=== PATIENT | female | born 1995 | race Hispanic/Latino ===

== ENCOUNTER → 2019-02-21 14:34 | Outpatient (CLI) | payer MEDICAID, SELFPAY ==
[2019-02-21 13:29] VITALS: BMI 30.5
--- NOTE | 2019-02-21 14:39 | US_ITS ---
STUDY: FIRST TRIMESTER OBSTETRICAL ULTRASOUND REASON FOR EXAM: Female, 23 years old. dating and viability LMP: 12/04/2018 TECHNIQUE: Transvaginal TECHNICAL QUALITY: Adequate. PRIOR ULTRASOUND: None. FINDINGS: There is visualization of a single gestational sac in a normal intrauterine position. The gestational sac shape is within normal limits. There is a visualized yolk sac. The yolk sac measures . The placenta is non-visualized. There is visualization of a live embryo. The crown-rump length (CRL) measures 3.16, indicating an estimated gestational age (EGA) of 10 weeks, 1 days. There is demonstrated cardiac activity with a heart rate of 124 bpm. The estimated gestation age (EGA) by LMP is 11 weeks, 2 days. The estimated date of delivery (ELISABETH) by LMP is 09/10/2019. The estimated gestation age (EGA) by US is 10 weeks, 2 days. The estimated date of delivery (ELISABETH) by US is 09/19/2019. The uterus measures 12.5 x 8.6 x 6.9 cm. There is no demonstrated uterine fibroid. The cervix is closed. The ovaries are not visualized. There is no fluid in the cul de sac. US/Init OB < 14Wks US IMPRESSION: Single live intrauterine 10 weeks 2 days by ultrasound. Estimated delivery date 09/17/2019. It should be noted that the cardiac activity 124 bpm is lower than expected for gestational age . Recommend close interval follow-up study within 7-14 days or as clinically appropriate as well as consideration for early anatomic survey at 12-14 weeks Electronically Signed: Charlotte Jones MD at 23:28 EDT Tel , Service support ,
[2019-02-21 15:42] LABS: Absolute Lymphocyte Count 2.14 X10^3/ul (0.83-4.51); Absolute Neutrophil Count 5.7 X10^3/uL (2.0-7.7); Basophil# 0.02 X10^3/uL; Basophil% 0.2 % (0-1); Eosinophil# 0.12 X10^3/uL; Eosinophils% 1.4 % (0-5); Hematocrit 33.4 % (37-47); Hemoglobin 10.5 g/dl (12.0-15.0); Lymphocyte # 2.14 X10^3/ul (4.0); Lymphocyte % 25.1 % (19-41); Mean Corp Hgb Conc 31.4 g/gl (32-36); Mean Corpuscular Hgb 22.9 pg (27.0-32.0); Mean Corpuscular Volume 72.9 fL (81-99); Mean Platelet Vol. 10.1 fl (6.2-12.0); Monocyte# 0.48 X10^3/uL; Monocyte% 5.6 % (0-10); Neutrophil # 5.74 X10^3/uL (2.7-7.7); Neutrophil % 67.6 % (47-70); Platelet Count 331 K/mm3 (150-450); RBC Distribution Width CV 18.5 % (11.6-14.6); RBC Distribution Width SD 48.9 fl (35.1-43.9); Red Blood Count 4.58 M/mm3 (4.2-5.4); White Blood Count 8.5 K/mm3 (4.4-11.0)
[2019-02-21 15:52] LABS: POSITIVE COUNT NO; POSITIVE DIFFERENTIAL NO; POSITIVE MORPHOLOGY NO
[2019-02-21 17:22] LABS: HIV - WCH Non-Reactive (Nonreactive); Rubella IgG 14.6 IU/mL
[2019-02-23 16:50] LABS: HEPATITIS B SURFACE AG Negative (Negative)
[2019-02-24 01:45] LABS: Rapid Plasmin Reagin (RPR) NONREACTIVE (NONREACTIVE)
[2019-02-27 14:07] LABS: von Willebrand Factor Activity 78 % (50-200)
[2019-02-28 11:53] LABS: Factor VIII Activity 118 % (56-140); VWD Studies Interp Report Note (.); von Willebrand Factor (vWF) Ag 103 % (50-200)
== END ==
LOC: OPUS 14:40 → PAVLAB 15:04 → LAB.FUTURE 02-22 06:42
PROVIDERS: Referring Provider Obstetrics & Gynecology; Visit Provider Obstetrics & Gynecology
DX: Z31.430 Encounter of female for testing for genetic disease carrier status for procreative management (principal); O09.30 Supervision of pregnancy with insufficient antenatal care, unspecified trimester; Z3A.00 Weeks of gestation of pregnancy not specified; Z83.2 Family history of diseases of the blood and blood-forming organs and certain disorders involving the immune mechanism
CPT/HCPCS: 36415; 76801; 85025; 85240; 85245; 85246; 86592; 86703; 86762; 86850; 86900; 87340

== ENCOUNTER → 2019-02-21 17:15 | Outpatient (CLI) | payer MEDICAID, SELFPAY ==
[2019-02-21 13:29] VITALS: BMI 30.5
[2019-02-21 20:18] LABS: Chlamydia Trachomatis by PCR POSITIVE (Negative); Neisserai gonorrhoeae by PCR Negative (Negative); Probe Check PASS; Sample Adequacy Control PASS; Specimen Processing Control PASS
[2019-02-27 11:50] LABS: HPV Reflexed? NOT INDICATED
== END ==
PROVIDERS: Referring Provider Obstetrics & Gynecology; Visit Provider Obstetrics & Gynecology
DX: Z31.430 Encounter of female for testing for genetic disease carrier status for procreative management (principal); O09.30 Supervision of pregnancy with insufficient antenatal care, unspecified trimester; Z3A.00 Weeks of gestation of pregnancy not specified; Z12.4 Encounter for screening for malignant neoplasm of cervix; Z83.2 Family history of diseases of the blood and blood-forming organs and certain disorders involving the immune mechanism
CPT/HCPCS: 36415; 76801; 85025; 85240; 85245; 85246; 86592; 86703; 86762; 86850; 86900; 87340; 87491; 87591; 87624; 88175; G0145

== ENCOUNTER → 2019-03-06 11:38 | Outpatient (CLI) | payer MEDICAID, SELFPAY ==
[2019-03-06 11:19] VITALS: BMI 30.5
[2019-03-06 13:30] LABS: Absolute Lymphocyte Count 1.66 X10^3/ul (0.83-4.51); Absolute Neutrophil Count 5.3 X10^3/uL (2.0-7.7); Basophil# 0.02 X10^3/uL; Basophil% 0.3 % (0-1); Eosinophil# 0.07 X10^3/uL; Eosinophils% 0.9 % (0-5); Hematocrit 31.9 % (37-47); Lymphocyte # 1.66 X10^3/ul (4.0); Lymphocyte % 21.9 % (19-41); Mean Corp Hgb Conc 31.3 g/gl (32-36); Mean Corpuscular Volume 73.5 fL (81-99); Mean Platelet Vol. 10.3 fl (6.2-12.0); Monocyte# 0.55 X10^3/uL; Monocyte% 7.3 % (0-10); Neutrophil # 5.27 X10^3/uL (2.7-7.7); Neutrophil % 69.5 % (47-70); Platelet Count 294 K/mm3 (150-450); RBC Distribution Width CV 18.6 % (11.6-14.6); RBC Distribution Width SD 48.7 fl (35.1-43.9); Red Blood Count 4.34 M/mm3 (4.2-5.4); White Blood Count 7.6 K/mm3 (4.4-11.0)
[2019-03-06 13:32] LABS: POSITIVE COUNT NO; POSITIVE DIFFERENTIAL NO; POSITIVE MORPHOLOGY NO
[2019-03-06 13:51] LABS: Glucose Challenge Gest 1H 50g 69 mg/dL (70-140)
== END ==
PROVIDERS: Referring Provider Obstetrics & Gynecology; Visit Provider Obstetrics & Gynecology
DX: O99.019 Anemia complicating pregnancy, unspecified trimester (principal); O99.211 Obesity complicating pregnancy, first trimester; Z3A.00 Weeks of gestation of pregnancy not specified
CPT/HCPCS: 36415; 82950; 85025

== ENCOUNTER 2019-03-14 17:17 | Emergency (ER) | payer MEDICAID, SELFPAY ==
[2019-03-06 11:19] VITALS: BMI 30.5
[2019-03-14 17:17] VITALS: BP 120/68; PULSE 92; RESP 18; TEMP 36.7; O2SAT 100; BMI 29.9
--- NOTE | 2019-03-14 18:04 | RAD_ITS ---
STUDY: X-RAY - LEFT CALCANEUS REASON FOR EXAM: Female, 23 years old. Pain TECHNIQUE: 2 view(s) of the calcaneus were obtained. COMPARISON: None. FINDINGS: There is no evidence of fracture or dislocation. There is a small plantar calcaneal spur. There are no radiodense foreign bodies. RAD/Calcaneus min 2 Views IMPRESSION: No fracture or dislocation. Small plantar calcaneal spur. Electronically Signed: Shane Michelle, at 19:00 EDT Tel , Service support ,
[2019-03-14] MEDS: Acetaminophen 500 MG Tablet 1000 MG PO (18:13)
--- NOTE | 2019-03-14 18:25 | RAD_ITS ---
STUDY: X-RAY - RIGHT CALCANEUS REASON FOR EXAM: Female, 23 years old. Pain TECHNIQUE: 2 view(s) of the calcaneus were obtained. COMPARISON: None. FINDINGS: There is no evidence of fracture or dislocation. There is a small plantar calcaneal spur. There are no radiodense foreign bodies. RAD/Calcaneus min 2 Views IMPRESSION: No fracture or dislocation. Small plantar calcaneal spur. Electronically Signed: Shane Michelle, at 19:00 EDT Tel , Service support ,
--- NOTE | 2019-03-14 19:19 | ED.VIS.GEN ---
History of Present Illness Chief Complaint: Lower Extremity Injury Informant: Patient Onset: Days - 7 Narrative: Patient presents with a week history of bilateral heel pain. Initially started on left side went to the right. She is a G3, P2 13-week gestation followed by Dr. Jonathon Joyce. Reports saw ED in [place] 2 days ago was placed on Motrin. No image studies. Denies any trauma. Denies fever. Reports yesterday noted nodules on her shins bilaterally is tender to palpation. No fevers. No drainage. No previous similar symptoms with other pregnancies. Denies any rheumatological family history. Also states some discomfort in bilateral wrists. Prior similar symptoms: No Past Medical History - Allergies and Home Meds Allergies/Adverse Reactions: Allergies No Known Allergies Allergy (Verified 03/14/19 17:18) Primary Care Physician: Care Physician,No Primary [Primary Care Provider] - Smoking Status: Never smoker Review of Systems General: Denies: Chills, Fever, Sweats Eyes: Denies: Visual changes - bilaterally, Diplopia ENT: Denies: Rhinorrhea, Sore throat Cardiovascular: Denies: Chest pain, Palpitations Respiratory: Denies: Dyspnea, Cough, Dyspnea on exertion Gastrointestinal: Denies: Abdominal pain, Nausea, Vomiting, Diarrhea, Melena, Hematochezia Genitourinary: Denies: Dysuria, Hematuria, Frequency Musculoskeletal: Reports: Arthralgias. Denies: Back pain, Extremity Pain Skin: Denies: Rash, Wounds Neurological: Denies: Headache, Weakness, Numbness Physical Exam Vital Signs/Narrative: Vital Signs Temp Pulse Resp BP Pulse Ox 03/14/19 17:17 98.1 F 92 18 120/68 100 Inital Vital Signs reviewed: Yes General: Well nourished, Well developed, No Acute Distress Head: Normocephalic, Atraumatic Eyes: Perrl, EOMI ENT: Moist mucous membranes, No rhinorrhea Neck: Supple, Nontender Cardiovascular: Regular rate, Regular rhythm, No murmurs Respiratory: No distress, CTA bilaterally, Chest nontender Abdomen: Soft, Nontender, Nondistended, Normal bowel sounds Back: Nontender, Normal Inspection Extremities: No edema, - - Tender palpation bilateral heels, skin intact. No drainage. No streaking. No plantar fascia tenderness. Bilateral shins noted red tender palpation nodules, no drainage or streaking. Skin: No rash, - - See above Neurological: Alert, Oriented x3, Cranial nerves II-XII grossly intact, Normal Strength, Normal Sensation Psychological: Normal affect, Normal Mood Diagnostic/Tx/Re-eval Bilateral heel x-rays: Small heel spurs bilaterally. - Medical Decision Making Patient given Tylenol secondary to . X-rays confirm some heel spurs. Likely pain from being on her feet along with being . There is no plantar tenderness. 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 She may also discuss with her OB with her nodules with . She will stop Motrin and use Tylenol only as needed. ED Disposition - Plan for ED Patient: Disposition: Home or Assisted Living Diagnosis: Heel spur, Arthralgia, Erythema nodosum, First trimester Instructions: Heel Spur, Arthralgia, : Common Questions Referrals: Care Physician,No Primary [Primary Care Provider] - Fast,Nannette, DO [NON-STAFF] - 5-7 Days Additional Instructions: Bilateral heel spurs on x-ray. Use postop shoes. Tylenol as needed. Stop Motrin. Erythema nodosum of the shins can be seen with , however may need further work-up for rheumatological disease as an outpatient.
[2019-03-14 19:49] VITALS: BP 118/65; PULSE 82; RESP 16; O2SAT 98
== END 2019-03-14 19:56 | disposition home or self-care (01) ==
PROVIDERS: Emergency Provider Emergency Medicine
DX: O99.89 Other specified diseases and conditions complicating pregnancy, childbirth and the puerperium (principal); M77.32 Calcaneal spur, left foot; M77.31 Calcaneal spur, right foot; M25.532 Pain in left wrist; M25.531 Pain in right wrist; O99.711 Diseases of the skin and subcutaneous tissue complicating pregnancy, first trimester; L52 Erythema nodosum; Z3A.13 13 weeks gestation of pregnancy
CPT/HCPCS: 73650; 99284; J7030; A4216

== ENCOUNTER 2019-04-02 23:16 | Emergency (ER) | payer MEDICAID, SELFPAY ==
[2019-04-02 23:17] VITALS: BP 126/67; PULSE 89; RESP 16; TEMP 36.5; O2SAT 99; BMI 30.4
--- NOTE | 2019-04-03 00:18 | ED.VIS.GEN ---
History of Present Illness Chief Complaint: Edema Informant: Patient Onset: Month(s) - 1 Context: Gradual Onset Timing: Continuous Quality: sore red lumps Location: both legs Current Severity: Moderate Maximum Severity: Moderate Worsened by: palpation, walking Relieved by: rest Associated Symptoms: swelling in both ankles now x several days Narrative: Patient is around 16 weeks and has had these lumps on her legs for the past month. Initially the pain started in her heels, she was told she had spurs after having some x-rays done. She has not followed up for any of this yet but comes in tonight because her ankles are swollen. She denies any chest discomfort, shortness of breath, near syncopal symptoms or palpitations. Past Medical History - Allergies and Home Meds Allergies/Adverse Reactions: Allergies No Known Allergies Allergy (Verified 04/02/19 23:17) Primary Care Physician: Carmen Patino MD [STAFF PHYSICIAN] - (call for appt tomorrow) Past Medical History: None Lives: Spouse/ Significant Other Smoking Status: Never smoker Review of Systems General: Denies: Chills, Fever, Sweats Eyes: Denies: Visual changes - bilaterally, Diplopia ENT: Denies: Rhinorrhea, Sore throat Cardiovascular: Denies: Chest pain, Palpitations Respiratory: Denies: Dyspnea, Cough, Dyspnea on exertion Gastrointestinal: Denies: Abdominal pain, Nausea, Vomiting, Diarrhea, Melena, Hematochezia Genitourinary: Denies: Dysuria, Hematuria, Frequency Musculoskeletal: Reports: Swelling, Extremity Pain. Denies: Back pain Skin: Reports: Rash. Denies: Wounds Neurological: Denies: Headache, Weakness, Numbness Physical Exam Vital Signs/Narrative: Vital Signs Temp Pulse Resp BP Pulse Ox 04/02/19 23:17 97.7 F L 89 16 126/67 H 99 Inital Vital Signs reviewed: Yes General: Well nourished, Well developed, No Acute Distress Head: Normocephalic, Atraumatic Eyes: Perrl, EOMI Neck: Supple, Nontender Cardiovascular: Regular rate, Regular rhythm, No murmurs Respiratory: No distress, CTA bilaterally, Chest nontender Abdomen: Soft, Nontender, Nondistended, Normal bowel sounds Back: Nontender, Normal Inspection Extremities: Tenderness - At multiple erythematous, raised nodules both shins, including one small one on the left calf., Edema - 1+ to both ankles, symmetric Skin: No Trauma, Rash - Tender erythematous raised nodules on both shins, left calf pain, no lymphangitis Neurological: Alert, Oriented x3, Cranial nerves II-XII grossly intact, Normal Strength, Normal Sensation, Normal Gait Psychological: Normal affect, Normal Mood Diagnostic/Tx/Re-eval - Medical Decision Making 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 I discussed with her OB who was on-call, Dr. Patino, who sees this commonly in females due to hormone changes. She agrees that the patient does not need any further emergent work-up in the emergency department. Patient was concerned about her blood pressure of 124. I reassured her. I did order her an ultrasound of the lower extremities to be obtained next business day as it is not available at the hour she presents, given the nodule on her calf and edema. I am at a low suspicion of a DVT. She will follow-up. ED Disposition - Plan for ED Patient: Disposition: Home or Assisted Living Diagnosis: Erythema nodosum, Instructions: PERIPHERAL EDEMA, Bilateral Referrals: Carmen Patino MD [STAFF PHYSICIAN] - (call for appt tomorrow) Additional Instructions: Radiology will call you in the morning regarding your ultrasound.
[2019-04-03] MEDS: Acetaminophen 500 MG Tablet 1000 MG PO (00:20)
[2019-04-03 00:33] VITALS: RESP 18
== END 2019-04-03 00:37 | disposition home or self-care (01) ==
PROVIDERS: Emergency Provider Emergency Medicine
DX: O26.892 Other specified pregnancy related conditions, second trimester (principal); L52 Erythema nodosum; Z3A.16 16 weeks gestation of pregnancy
CPT/HCPCS: 99283

== ENCOUNTER → 2019-04-03 11:08 | Outpatient (CLI) | payer MEDICAID, SELFPAY ==
[2019-04-02 23:17] VITALS: BMI 30.4
--- NOTE | 2019-04-03 11:10 | VDLE_ITS ---
Reason For Study: Pain/Swelling RIGHT LEFT GSV is normal. GSV is normal. CFV is compressible, spontaneous, phasic, CFV is compressible, spontaneous, phasic, competent and demonstrates normal competent, and demonstrates normal augmentation. augmentation. FV is compressible, spontaneous, phasic, FV is compressible, spontaneous, phasic, competent and demonstrates normal competent and demonstrates normal augmentation. augmentation. POP V is compressible, spontaneous, phasic, POP V is compressible, spontaneous, phasic, competent and demonstrates normal competent and demonstrates normal augmentation. augmentation. T/P Trunk is compressible. T/P Trunk is compressible. PTV is compressible. PTV is compressible. RT PerV is compressible. LT PerV is compressible. Procedure Exam performed in department. A preliminary report was called and/or faxed to [facility]. Pt seen in ED 04/02/19. Interpretation Summary No evidence for acute deep venous thrombosis bilateral lower extremities with patent and compressible bilateral great saphenous veins. Ordering Physician: Hugo Culver Performed By: Emma Ferrara RVT
== END ==
PROVIDERS: Referring Provider Emergency Medicine; Visit Provider Emergency Medicine
DX: M79.605 Pain in left leg (principal); M79.604 Pain in right leg; R60.0 Localized edema
CPT/HCPCS: 93970

== ENCOUNTER → 2019-04-11 17:29 | Outpatient (CLI) | payer MEDICAID, SELFPAY ==
[2019-04-11 12:09] VITALS: BMI 30.4
[2019-04-11 21:03] LABS: Chlamydia Trachomatis by PCR Negative (Negative); Neisserai gonorrhoeae by PCR Negative (Negative); Probe Check PASS; Sample Adequacy Control PASS; Specimen Processing Control PASS
== END ==
PROVIDERS: Referring Provider Obstetrics & Gynecology; Visit Provider Obstetrics & Gynecology
DX: O98.819 Other maternal infectious and parasitic diseases complicating pregnancy, unspecified trimester (principal); A74.9 Chlamydial infection, unspecified
CPT/HCPCS: 87491; 87591

== ENCOUNTER → 2019-05-08 16:49 | Outpatient (CLI) | payer MEDICAID, SELFPAY ==
[2019-05-08 13:27] VITALS: BMI 30.4
[2019-05-08 19:43] LABS: Chlamydia Trachomatis by PCR Negative (Negative); Neisserai gonorrhoeae by PCR Negative (Negative); Probe Check PASS; Sample Adequacy Control PASS; Specimen Processing Control PASS
== END ==
PROVIDERS: Referring Provider Obstetrics & Gynecology; Visit Provider Obstetrics & Gynecology
DX: O98.819 Other maternal infectious and parasitic diseases complicating pregnancy, unspecified trimester (principal); A74.9 Chlamydial infection, unspecified; Z3A.00 Weeks of gestation of pregnancy not specified
CPT/HCPCS: 87491; 87591

== ENCOUNTER → 2019-06-26 15:10 | Outpatient (CLI) | payer MEDICAID, SELFPAY ==
[2019-06-26 15:04] VITALS: BMI 28.8
[2019-06-26 16:11] LABS: Absolute Lymphocyte Count 1.67 X10^3/uL (0.83-4.51); Absolute Neutrophil Count 6.5 X10^3/uL (2.0-7.7); Basophil# 0.03 X10^3/uL; Basophil% 0.3 % (0-1); Eosinophils% 1.1 % (0-5); Hematocrit 27.7 % (37-47); Hemoglobin 8.2 g/dL (12.0-15.0); Lymphocyte # 1.67 X10^3/ul (4.0); Lymphocyte % 18.9 % (19-41); Mean Corp Hgb Conc 29.6 g/dL (32-36); Mean Corpuscular Hgb 22.3 pg (27.0-32.0); Mean Corpuscular Volume 75.5 fL (81-99); Mean Platelet Vol. 10.2 fl (6.2-12.0); Monocyte# 0.53 X10^3/uL; NRBC Flagged by Analyzer 0 % (0-5); Neutrophil # 6.47 X10^3/uL (2.7-7.7); Neutrophil % 73.4 % (47-70); Platelet Count 302 K/mm3 (150-450); RBC Distribution Width CV 15.3 % (11.6-14.6); RBC Distribution Width SD 41.2 fl (35.1-43.9); Red Blood Count 3.67 M/mm3 (4.2-5.4); White Blood Count 8.8 K/mm3 (4.4-11.0)
[2019-06-26 16:13] LABS: Glucose Challenge Gest 1H 50g 113 mg/dL (70-140)
== END ==
PROVIDERS: Referring Provider Obstetrics & Gynecology; Visit Provider Obstetrics & Gynecology
DX: Z34.82 Encounter for supervision of other normal pregnancy, second trimester (principal)
CPT/HCPCS: 36415; 82950; 85025

== ENCOUNTER → 2019-06-27 12:58 | Outpatient (CLI) | payer MEDICAID, SELFPAY ==
[2019-06-26 15:04] VITALS: BMI 28.8
[2019-06-27 13:30] VITALS: BP 114/53; PULSE 68; RESP 16; TEMP 36.9; O2SAT 100; BMI 29.2
== END ==
PROVIDERS: Referring Provider Obstetrics & Gynecology; Visit Provider Obstetrics & Gynecology
DX: O99.019 Anemia complicating pregnancy, unspecified trimester (principal); Z3A.00 Weeks of gestation of pregnancy not specified
CPT/HCPCS: 96365; 96366; J1756; J7050; A4216

== ENCOUNTER → 2019-07-03 12:58 | Outpatient (CLI) | payer MEDICAID, SELFPAY ==
[2019-06-26 15:04] VITALS: BMI 28.8
[2019-06-27 13:30] VITALS: BMI 29.2
[2019-07-03 13:10] VITALS: BP 105/57; PULSE 68; RESP 16; TEMP 36.8; O2SAT 97; BMI 29.2
== END ==
PROVIDERS: Referring Provider Obstetrics & Gynecology; Visit Provider Obstetrics & Gynecology
DX: O99.019 Anemia complicating pregnancy, unspecified trimester (principal); Z3A.00 Weeks of gestation of pregnancy not specified
CPT/HCPCS: 96365; 96366; J1756; J7050; A4216

== ENCOUNTER → 2019-07-10 12:58 | Outpatient (CLI) | payer MEDICAID, SELFPAY ==
[2019-06-26 15:04] VITALS: BMI 28.8
[2019-07-03 13:10] VITALS: BMI 29.2
[2019-07-10 13:36] VITALS: BP 95/60; PULSE 75; RESP 16; TEMP 36.7; O2SAT 100; BMI 29.2
== END ==
PROVIDERS: Referring Provider Obstetrics & Gynecology; Visit Provider Obstetrics & Gynecology
DX: O99.019 Anemia complicating pregnancy, unspecified trimester (principal); Z3A.00 Weeks of gestation of pregnancy not specified
CPT/HCPCS: 96365; 96366; J1756; J7050; A4216

== ENCOUNTER → 2019-08-11 14:12 | Outpatient (CLI) | payer MEDICAID, SELFPAY ==
[2019-08-11 13:53] VITALS: BMI 29.2
[2019-08-11 14:40] LABS: ROM Internal Control Test YES-OK TO RESULT pt. (Internal QC); ROM Patient Test Negative (Negative)
== END ==
PROVIDERS: Visit Provider Nurse Practitioner Women's Health
DX: N89.8 Other specified noninflammatory disorders of vagina (principal)
CPT/HCPCS: 84112

== ENCOUNTER → 2019-08-23 13:57 | Outpatient (CLI) | payer MEDICAID, SELFPAY ==
[2019-08-23 13:44] VITALS: BMI 29.2
[2019-08-23 14:18] LABS: Absolute Lymphocyte Count 1.54 X10^3/uL (0.83-4.51); Absolute Neutrophil Count 6.3 X10^3/uL (2.0-7.7); Basophil# 0.03 X10^3/uL; Basophil% 0.4 % (0-1); Eosinophil# 0.03 X10^3/uL; Eosinophils% 0.4 % (0-5); Hematocrit 35.1 % (37-47); Hemoglobin 11.3 g/dL (12.0-15.0); Lymphocyte # 1.54 X10^3/ul (4.0); Lymphocyte % 18.5 % (19-41); Mean Corp Hgb Conc 32.2 g/dL (32-36); Mean Corpuscular Hgb 26.3 pg (27.0-32.0); Mean Corpuscular Volume 81.6 fL (81-99); Monocyte# 0.44 X10^3/uL; Monocyte% 5.3 % (0-10); NRBC Flagged by Analyzer 0 % (0-5); Neutrophil # 6.27 X10^3/uL (2.7-7.7); POSITIVE MORPHOLOGY YES; Platelet Count 285 K/mm3 (150-450); RBC Distribution Width CV 22.3 % (11.6-14.6); RBC Distribution Width SD 63.7 fl (35.1-43.9); White Blood Count 8.3 K/mm3 (4.4-11.0)
[2019-08-23 14:23] LABS: Differential Indicated SCAN CRITERIA MET
[2019-08-23 14:41] LABS: Anisocytosis 1+
== END ==
PROVIDERS: Referring Provider Nurse Practitioner Women's Health; Visit Provider Nurse Practitioner Women's Health
DX: Z34.90 Encounter for supervision of normal pregnancy, unspecified, unspecified trimester (principal)
CPT/HCPCS: 36415; 85025; 87081; 87086; 87088

== ENCOUNTER 2019-09-18 18:45 | Inpatient (IN) | payer MEDICAID, SELFPAY ==
[2019-09-14 13:43] VITALS: BMI 29.2
[2019-09-18 18:32] VITALS: BMI 31.6
[2019-09-18] MEDS: Lactated Ringers 1,000 ML 50 ML IV (19:40)
[2019-09-18 20:02] LABS: Absolute Lymphocyte Count 2.43 X10^3/uL (0.83-4.51); Basophil# 0.04 X10^3/uL; Basophil% 0.4 % (0-1); Eosinophil# 0.05 X10^3/uL; Eosinophils% 0.5 % (0-5); Hematocrit 36.2 % (37-47); Hemoglobin 11.9 g/dL (12.0-15.0); Lymphocyte # 2.43 X10^3/ul (4.0); Mean Corp Hgb Conc 32.9 g/dL (32-36); Mean Corpuscular Hgb 26.4 pg (27.0-32.0); Mean Corpuscular Volume 80.3 fL (81-99); Mean Platelet Vol. 10.9 fl (6.2-12.0); Monocyte# 0.53 X10^3/uL; Monocyte% 5.2 % (0-10); NRBC Flagged by Analyzer 0 % (0-5); Neutrophil # 7.03 X10^3/uL (2.7-7.7); Neutrophil % 69.6 % (47-70); Platelet Count 276 K/mm3 (150-450); RBC Distribution Width CV 19.6 % (11.6-14.6); Red Blood Count 4.51 M/mm3 (4.2-5.4); White Blood Count 10.1 K/mm3 (4.4-11.0)
[2019-09-18] MEDS: Lactated Ringers 500 ML 999 ML IV ×2 (20:14→21:33)
[2019-09-18] MEDS: fentaNYL-bupivacaine (epidural) 100 ML BAG EPIDURAL (21:00)
--- NOTE | 2019-09-18 21:09 | HP.PCM_ITS ---
- Problem List (1) Anemia affecting Status: Acute Comment: IV Venofer infusions (2) Echogenic bowel of fetus on ultrasound Status: Acute Comment: growth US q4 weeks-adequate growth 08/21/19, echogenic bowel resolved. (3) History of incision and drainage Status: Acute Comment: Left gfukoh-Khmhvwbu-Hekehs-up with Dr. Harris 04/19/19 (4) LGSIL (low grade squamous intraepithelial dysplasia) Status: Acute Comment: repeat pap (5) Anemia affecting Status: Acute Qualifiers: Comment: iron, needs repeat cbc in 4 weeks (6) Chlamydia infection affecting Status: Acute Comment: retest negative (7) Family history of von Willebrand disease Status: Acute Comment: negative screening (8) Status: Acute Qualifiers: Comment: Horizon negative 4 out of 4; NT appeared normal Panorama low risk, anatomy normal (9) Obesity affecting Status: Acute Qualifiers: Comment: 1 tm glucola, discussed healthy weight gain (10) Supervision of normal Status: Acute Qualifiers: Comment: PRR ELISABETH 09/17/19 girl Calvin Rodriguez , (girl) boyfriend Robin ([employer], Sarah) History Date of Admission: 11/18/12 Final ELISABETH: 09/17/19 Gestational age: 40 Weeks and 1 Days History of this : This is a 24 year-old, at 40 weeks gestational age sent in active labor 4 cm dilated with no vaginal bleeding or loss of fluid admits good movement patient has had a complicated by echogenic bowel but had normal genetics and follow-up screening sent. Allergies No Known Allergies Allergy (Verified 09/18/19 20:24) Home Medications: Home Medications vitamin #56-iron 35 mg and 5 mg-folic acid 1 mg-dha capsule 1 cap PO DAILY 02/21/19 Ferrous Sulfate [Ferosul] 325 mg PO DAILY 03/14/19 Smoking Status: Never smoker Alcohol: None Number of Fetus(es): 1 NST - FHR Rate Baby A Baseline: 130 Variability:: Moderate Accelerations:: 15 x 15 Decelerations:: None NST Reactive:: Yes FHR Category:: Category I History Past Pregnancies: Past Pregnancies Pregancy History 3 Elective abortions Hx Para 2 Spontaneous abortions Hx # Term Pregnancies Ectopic pregnancies Hx # Pregnancies Multiple births # of living children Past Pregnancies Del. Date Name GA/Weeks Outcome Route Bth Weight Gen Labor Lgth Anesthesia Del Locatn Provider FOB 10/29/122012 Nicolás 37 live - full term 6 lbs 11oz Female epidural [facility] Dr. Huerta 06/20/142013 Calvin 37 live - full term 6 lbs 9oz Male epidural [place] Labs: Mom's Labs & Results 09/18/19 09/18/19 19:40 19:40 WBC 10.1 RBC 4.51 Hgb 11.9 L Hct 36.2 L MCV 80.3 L MCH 26.4 L MCHC 32.9 RDW Std Deviation 57.0 H RDW Coeff of Colt 19.6 H Plt Count 276 MPV 10.9 Immature Gran % (Auto) 0.300 Neut % (Auto) 69.6 Lymph % (Auto) 24.0 [place] % (Auto) 5.2 Eos % (Auto) 0.5 Baso % (Auto) 0.4 Absolute Neuts (auto) 7.0 Absolute Lymphs (auto) 2.43 Nucleated RBC % 0 Blood Type Pending Antibody Screen Pending Course Did the patient receive Yes care? Labs Blood Type: O RH: POSITIVE RPR/VDRL/Syphilis Nonreactive Rubella status Immune HbSAg Negative Date Done: 02/21/19 Chlamydia Negative Gonorrhea Negative HIV/AIDS Non-Reactive Group B Strep: Negative Other Lab Procedures/Results/ hx treated 01/2019 for positive chlamydia - Comments: negative after treatment Current Obstetrical History Gestational Diabetes No Incompetent Cervix No Infertility No IUGR No: was told baby was measuring small early in preg Macrosomia No Hypertension/Pre-eclampsia No Placenta Previa/Abruption No PTL/PROM No Uterine anomaly No Oligohydramnios No Polyhydramnios No Multiple gestation No Past Medical History Asthma No Diabetes No Hypertension No Heart disease No Mitral valve prolapse No Neurologic/Seizure disorder/ No Migraines Kidney disease No Liver disease No Varicosities No Clotting disorders/Hx of DVT No Thyroid Dysfunction No Other medical diseases No Psychiatric disorders No Major trauma No Abnormal PAP smear Yes: abnormal cells Sleep apnea No Mammogram in the last 2 years Yes: with biopsy 04/14 Medications Taken During Last Date/Time of Medication 04/2019 Taken: [antibiotic] Last Date/Time of Medication 01/2019 Taken: [unknown antibiotic] Reason for taking medication [ took for [address] Harris for left breast antibiotic] abscess Reason for taking medication [ pos. for chlamydia - negative after treatment unknown antibiotic] Social History Marital Status: SINGLE Alleged father Robin Sanders Smoking No Smoking Status Never smoker Expected Infant Delivery Method: Spontaneous Vaginal Review of Systems Constitutional: Denies: Fever, Malaise Eyes: Denies: Blurred vision, Vision Change HEENT: Denies: Head Aches, Visual Changes Cardiovascular: Denies: Chest Pain, Palpitations Respiratory: Denies: Cough, Shortness of Breath, Wheezing Gastrointestinal: Denies: Abdominal Pain, Diarrhea, Nausea, Vomiting Genitourinary: Denies: Dysuria, Hematuria Musculoskeletal: Denies: Joint Pain, Muscle pain Skin: Denies: Lesions, Rash Neurological: Denies: Blurred vision, Focal weakness, Headaches Psychiatric: Denies: Anxiety, Depression Endocrine: Denies: Heat/ Cold Intolerance Hematologic/ Lymphatic: Denies: Easy Bruising, Easy Bleeding Physical Exam General: Alert, Cooperative, No apparent distress HEENT: Atraumatic, Normocephalic. Negative for: Thyromegaly, Lymphadenopathy Cardiovascular: Regular rate Lungs: Normal air movement Abdomen: Soft, Non Tender, Gravid Neurological: Deep Tendon Reflexes 2+/4 and Symmetrical, Neuro grossly intact. Negative for: Clonus [employer]: Normal external genitalia. Negative for: Vulvar lesions Estimated gestational size: Appropriate for gestational size Presentation: Cephalic Assessment/Plan All Active Problems (Last Reviewed 09/14/19 @ 13:28 by Wendy Coates) Anemia affecting (Acute) Echogenic bowel of fetus on ultrasound (Acute) History of incision and drainage (Acute) LGSIL (low grade squamous intraepithelial dysplasia) (Acute) Anemia affecting (Acute) Chlamydia infection affecting (Acute) Family history of von Willebrand disease (Acute) (Acute) Obesity affecting (Acute) Supervision of normal (Acute) This is a 24 year-old, , at 40 weeks gestational age presents in active labor Patient presents IAL, plan expectant management for , pitocin/AROM PRN if needed. Pain management: Plans epidural. GBS negative. Management of any complications: None I have [facility] the [facility] and made any clinically relevant updates.
[2019-09-18] MEDS: Oxytocin 30 units/NS 500 ml 30 UNITS/500 ML IV.SOLN 334 UNITS IV (23:12)
--- NOTE | 2019-09-18 23:21 | OP.PCM_ITS ---
Problem List (1) Anemia affecting Status: Acute Comment: IV Venofer infusions (2) Echogenic bowel of fetus on ultrasound Status: Acute Comment: growth US q4 weeks-adequate growth 08/21/19, echogenic bowel resolved. (3) History of incision and drainage Status: Acute Comment: Left rgmdbo-Akcmnakh-Onccuc-up with Dr. Harris 04/19/19 (4) LGSIL (low grade squamous intraepithelial dysplasia) Status: Acute Comment: repeat pap (5) Anemia affecting Status: Acute Qualifiers: Comment: iron, needs repeat cbc in 4 weeks (6) Chlamydia infection affecting Status: Acute Comment: retest negative (7) Family history of von Willebrand disease Status: Acute Comment: negative screening (8) Status: Acute Qualifiers: Comment: Horizon negative 4 out of 4; NT appeared normal Panorama low risk, anatomy normal (9) Obesity affecting Status: Acute Qualifiers: Comment: 1 tm glucola, discussed healthy weight gain (10) Supervision of normal Status: Acute Qualifiers: Comment: PRR ELISABETH 09/17/19 girl Calvin Rodriguez , (girl) boyfriend Robin ([employer], Sarah) Vaginal Delivery Maternal Presentation: Active Labor ial Amniotic Membrane Rupture Type: Artificial Amniotic Fluid Description: Moderate meconium Final ELISABETH: 09/17/19 Gestational age: 40 Weeks and 1 Days Date of Procedure: 09/18/19 Surgery/ Procedure Performed: Spontaneous Vaginal Delivery Type of Anesthesia: Epidural Description of Procedure: Patient began pushing and delivered the head in the KRISS presentation. The head was delivered atraumatically and a loose nuchal cord x1 was identified and the was easily delivered through it. The anterior and posterior shoulders delivered without complication followed by the rest of the infant and the was placed on the maternal abdomen. Delayed cord clamping was employed for approximately 60 seconds. Cord was clamped and cut and gentle traction was applied to the cord and the placenta delivered spontaneously immediately following it was noted to be intact with three-vessel cord. The perineum and vagina were inspected and noted to have no laceration. EBL was 300 cc. Patient and infant tolerated delivery well. Presentation: KRISS Placental Delivery Description: Spontaneous Cord Vessel Description: 3 Vessels Cord Entanglement: Around neck x 1, loose Estimated Blood Loss: 300 Infant A gender: Female (1 minute): 8 (5 minute): 10 Episiotomy Description: None Laceration: None Medications given after delivery: IV Pitocin Complications: None Multi Select Codes - Urinary/Genital Urinary/Genital CPT Codes: 23657 Vaginal Delivery+ PP Care([facility])
--- NOTE | 2019-09-18 23:22 | DCINST_ITS ---
Discharge Diet: No Restrictions Discharge Activity: Return to Normal Activity, May not drive while taking narcotic pain medications., May Shower May resume sexual activity in: 4-6 weeks Call your doctor if your incision/area has: Continuous Slow Oozing, Sudden Increased Bleeding, Increased Pain/ Swelling, Increased Redness, Foul Smelling Discharge Additional Instructions: If you experience any of the following, contact your healthcare provider. * Bleeding that soaks a pad every hour for 2 hours * Fever 100.4 or higher * Unrelieved incision or abdominal pain * Swelling, redness, discharge or bleeding from your incision or episiotomy site * Your incision begins to separate * Problems urinating (including inability to urinate or burning while urinating). * Visual changes * Severe headache * Flu-like symptoms * Pain or redness in one of both of your breasts * Pain, warmth, tenderness or swelling in your legs, especially the calf area * Frequent nausea and vomiting * Symptoms of depression or anxiety If you experience any of the following, call 911 or go to the nearest Emergency Room. * Chest pain * Problems breathing * Seizure activity * Partial or complete paralysis of a body part, slurred speech, weakness or drooping of the face, or a sudden inability to walk or hold your balance Allergies/Adverse Reactions: Allergies No Known Allergies Allergy (Verified 09/18/19 20:24) Medications to take at Discharge vitamin #56-iron 35 mg and 5 mg-folic acid 1 mg-dha capsule 1 cap PO DAILY 02/21/19 Ferrous Sulfate [Ferosul] 325 mg PO DAILY 03/14/19 Please Follow Up With: Carmen Patino MD - [phone] When: Call to make an appointment with your doctor in 6 weeks. If you had elevated Blood pressure or 4th degree laceration you will need to be seen in 2 weeks. Primary Care Physician: Care Physician,No Primary [Primary Care Provider] - Test Results: Test results from this visit will be discussed in further detail at your follow- up appointment, if applicable.
--- NOTE | 2019-09-18 23:22 | PCM.DCVAG ---
Discharge Diet: No Restrictions Discharge Activity: Return to Normal Activity, May not drive while taking narcotic pain medications., May Shower May resume sexual activity in: 4-6 weeks Call your doctor if your incision/area has: Continuous Slow Oozing, Sudden Increased Bleeding, Increased Pain/ Swelling, Increased Redness, Foul Smelling Discharge Additional Instructions: If you experience any of the following, contact your healthcare provider. Bleeding that soaks a pad every hour for 2 hours Fever 100.4 or higher Unrelieved incision or abdominal pain Swelling, redness, discharge or bleeding from your incision or episiotomy site Your incision begins to separate Problems urinating (including inability to urinate or burning while urinating). Visual changes Severe headache Flu-like symptoms Pain or redness in one of both of your breasts Pain, warmth, tenderness or swelling in your legs, especially the calf area Frequent nausea and vomiting Symptoms of depression or anxiety If you experience any of the following, call 911 or go to the nearest Emergency Room. Chest pain Problems breathing Seizure activity Partial or complete paralysis of a body part, slurred speech, weakness or drooping of the face, or a sudden inability to walk or hold your balance Allergies/Adverse Reactions: Allergies No Known Allergies Allergy (Verified 09/18/19 20:24) Medications to take at Discharge vitamin #56-iron 35 mg and 5 mg-folic acid 1 mg-dha capsule 1 cap PO DAILY 02/21/19 Ferrous Sulfate [Ferosul] 325 mg PO DAILY 03/14/19 Please Follow Up With: Carmen Patino MD - [phone] When: Call to make an appointment with your doctor in 6 weeks. If you had elevated Blood pressure or 4th degree laceration you will need to be seen in 2 weeks. Primary Care Physician: Care Physician,No Primary [Primary Care Provider] - Test Results: Test results from this visit will be discussed in further detail at your follow-up appointment, if applicable.
[2019-09-19] MEDS: 0.9% Saline Lock 10 ML Syringe IV (01:31)
[2019-09-19] MEDS: Acetaminophen 500 MG Tablet 1000 MG PO (04:57)
[2019-09-19 05:00] VITALS: BP 97/55; PULSE 62; RESP 18; TEMP 37.1
--- NOTE | 2019-09-19 09:14 | PCM.PN.OB ---
Subjective: doing well no complaints pain controlled no CP SOB N V ambulating well tolerating po lochia moderate, going well - Physical Exam Vitals/I&O's: Vital Signs Temp Pulse Resp BP 98.8 F 62 18 97/55 L 09/19/19 05:00 09/19/19 05:00 09/19/19 05:00 09/19/19 05:00 Weight: 167 lb 1.766 oz Body Mass Index (BMI) 31.6 Intake and Output for Last 24 Hours 09/17/19 09/18/19 09/19/19 23:59 23:59 23:59 Intake Total 1415.00 / 1415.00 800.0 / 800.0 Output Total 1000 / 1000 Balance 1415.00 / 1415.00 -200.0 / -200.0 General: Alert, Oriented x3 Laboratory Results 09/18/19 19:40: WBC 10.1, RBC 4.51, Hgb 11.9 L, Hct 36.2 L, MCV 80.3 L, MCH 26.4 L, MCHC 32.9, RDW Std Deviation 57.0 H, RDW Coeff of Colt 19.6 H, Plt Count 276, MPV 10.9, Immature Gran % (Auto) 0.300, Neut % (Auto) 69.6, Lymph % (Auto) 24.0, Page % (Auto) 5.2, Eos % (Auto) 0.5, Baso % (Auto) 0.4, Absolute Neuts (auto) 7.0, Absolute Lymphs (auto) 2.43, Nucleated RBC % 0 09/18/19 19:40: Blood Type O POSITIVE, Antibody Screen NEGATIVE Current Medications Acetaminophen (Tylenol) 1,000 mg PO Q8H PRN PRN PRN Reason: Pain Score 1-3/10 Last Admin: 09/19/19 04:57 Dose: 1,000 mg Documented by: Bisacodyl (Dulcolax) 10 mg RECTAL UD PRN PRN Reason: If no BM Dibucaine (Dibucaine) 1 applic TOPICAL TID PRN PRN; Protocol PRN Reason: Discomfort Ferrous Sulfate (Ferrous Sulfate) 325 mg PO DAILYCM ADRIANA Hydrocortisone (Hytone) 1 applic TOPICAL TID PRN PRN; Protocol PRN Reason: Discomfort Methylergonovine Maleate (Methergine) 0.2 mg IM X1 PRN PRN Reason: Excess bleeding/uterine atony Naproxen (Naprosyn) 500 mg PO Q8H PRN PRN PRN Reason: Pain Score 1-3/10 Ondansetron HCl (Zofran) 4 mg IV Q4H PRN PRN PRN Reason: Nausea Oxycodone HCl (Oxyir) 5 - 10 mg PO Q4H PRN PRN PRN Reason: Pain Score 4-10/10 Multivit/Folic Acid/Iron (Prenatabs Fa) 1 tablet PO DAILY@1200 ADRIANA Senna/Docusate Sodium (Senokot-S, Adenike-Colace) 1 - 2 tablet PO DAILY PRN PRN PRN Reason: Constipation Simethicone (Mylicon) 80 mg PO PCHS PRN PRN Reason: Indigestion/Stomach pain Sodium Chloride () 5 - 15 ml IV UD PRN PRN Reason: SALINE FLUSH Last Admin: 09/19/19 01:31 Dose: 10 ml Documented by: Medical Necessity - Tobacco Use Smoking Status: Never smoker Assessment/Plan All Active Problems (Last Reviewed 09/14/19 @ 13:28 by Wendy Coates) Anemia affecting (Acute) Echogenic bowel of fetus on ultrasound (Acute) History of incision and drainage (Acute) LGSIL (low grade squamous intraepithelial dysplasia) (Acute) Anemia affecting (Acute) Chlamydia infection affecting (Acute) Family history of von Willebrand disease (Acute) (Acute) Obesity affecting (Acute) Supervision of normal (Acute) s/p PPD # 1 1. routine post delivery care 2. breast feeding- support given 3. rh positive 4. rubella immune
[2019-09-19 09:20] VITALS: BP 106/58; PULSE 68; RESP 16; TEMP 36.8
[2019-09-19] MEDS: Ferrous Sulfate 325 MG Tablet PO (09:22)
[2019-09-19] MEDS: Prenatal Vits Tablet 1 TABLET PO (12:16)
[2019-09-19 12:22] VITALS: BP 112/55; PULSE 69; RESP 16; TEMP 36.8
[2019-09-19 16:45] VITALS: BP 128/78; PULSE 68; RESP 14; TEMP 36.8
[2019-09-19 20:00] VITALS: BP 104/45; PULSE 67; RESP 16; TEMP 36.8
[2019-09-20 02:39] VITALS: BP 105/59; PULSE 72; RESP 16; TEMP 36.6
[2019-09-20 08:45] VITALS: BP 116/80; PULSE 52; RESP 16; TEMP 36.6
[2019-09-20] MEDS: Prenatal Vits Tablet 1 TABLET PO (09:17)
[2019-09-20] MEDS: Ferrous Sulfate 325 MG Tablet PO (09:17)
[2019-09-20] MEDS: Senna/Docusate Sodium 1 Tablet PO (09:20)
[2019-09-20] MEDS: Acetaminophen 500 MG Tablet 1000 MG PO (09:20)
== END 2019-09-20 13:25 | disposition home or self-care (01) | DRG 560 ==
LOC: WPOUT 18:52 → WP 18:52
PROVIDERS: Admitting Provider Obstetrics & Gynecology; Visit Provider Obstetrics & Gynecology
DX: O99.02 Anemia complicating childbirth (principal); D64.9 Anemia, unspecified; O99.214 Obesity complicating childbirth; E66.9 Obesity, unspecified; O77.0 Labor and delivery complicated by meconium in amniotic fluid; O69.81X0 Labor and delivery complicated by cord around neck, without compression, not applicable or unspecified; Z3A.40 40 weeks gestation of pregnancy; Z37.0 Single live birth
CPT/HCPCS: 59025; 59050; 85025; 86850; 86900; 86901; 99218; J7120; A4216; G0378

== ENCOUNTER 2021-10-15 15:31 | Outpatient (CLI) | payer MEDICAID, SELFPAY ==
[2021-10-15 16:41] LABS: Amphetamine Urine VISTA NEGATIVE (<1000 ng/mL); Barbiturate Urine VISTA NEGATIVE (< 200 ng/mL); Benzodiazepine Urine VISTA NEGATIVE (< 200 ng/mL); Cocaine Urine VISTA NEGATIVE (< 300 ng/mL); Ecstacy Urine VISTA NEGATIVE (< 500 ng/mL); Methadone Urine VISTA NEGATIVE (< 300 ng/mL); PCP Urine VISTA NEGATIVE (< 25 ng/mL); THC Urine VISTA NEGATIVE (< 50 ng/mL); Vista UDS pH Range 6
[2021-10-17 21:07] LABS: Chlamydia By Nucleic Acid AMP Negative (Negative)
[2021-10-18 08:35] LABS: Gonococcus By Nucleic Acid AMP Negative (Negative)
[2021-10-20 11:29] LABS: HPV Reflexed? NOT INDICATED
== END 2021-10-15 23:59 | disposition short-term general hospital (02) ==
PROVIDERS: Referring Provider Obstetrics & Gynecology; Visit Provider Obstetrics & Gynecology
DX: Z34.90 Encounter for supervision of normal pregnancy, unspecified, unspecified trimester (principal); Z12.4 Encounter for screening for malignant neoplasm of cervix
CPT/HCPCS: 36415; 80307; 84702; 87086; 87088; 87491; 87591; 88175; G0145

== ENCOUNTER 2021-10-17 07:33 | Outpatient (CLI) | payer MEDICAID, SELFPAY ==
[2021-10-17 08:49] LABS: hCG Titer Quant., Serum 44708 mIU/mL (1-3)
== END 2021-10-17 23:59 | disposition short-term general hospital (02) ==
PROVIDERS: Referring Provider Obstetrics & Gynecology; Visit Provider Obstetrics & Gynecology
DX: O20.0 Threatened abortion (principal); Z3A.00 Weeks of gestation of pregnancy not specified
CPT/HCPCS: 36415; 84702

== ENCOUNTER 2021-11-10 09:08 | Outpatient (CLI) | payer MEDICAID, SELFPAY ==
[2021-11-10 09:41] LABS: Absolute Lymphocyte Count 1.65 X10^3/uL (0.83-4.51); Absolute Neutrophil Count 5.5 X10^3/uL (2.0-7.7); Basophil# 0.02 X10^3/uL; Basophil% 0.3 % (0-1); Eosinophil# 0.05 X10^3/uL; Eosinophils% 0.7 % (0-5); Hematocrit 36.7 % (37-47); Lymphocyte # 1.65 X10^3/ul (0.83-4.51); Lymphocyte % 21.6 % (19-41); Mean Corp Hgb Conc 35.4 g/dL (32-36); Mean Corpuscular Hgb 30.7 pg (27.0-32.0); Mean Corpuscular Volume 86.6 fL (81-99); Mean Platelet Vol. 9.7 fl (6.2-12.0); Monocyte# 0.43 X10^3/uL; Monocyte% 5.6 % (0-10); NRBC Flagged by Analyzer 0 % (0-5); Neutrophil # 5.47 X10^3/uL (2.7-7.7); Neutrophil % 71.4 % (47-70); Platelet Count 294 K/mm3 (150-450); RBC Distribution Width CV 13.2 % (11.6-14.6); RBC Distribution Width SD 41.3 fl (35.1-43.9); Red Blood Count 4.24 M/mm3 (4.2-5.4); White Blood Count 7.7 K/mm3 (4.4-11.0)
[2021-11-10 10:30] LABS: NATERA MAILED SPECIMEN
[2021-11-10 10:54] LABS: HIV - WCH Non-Reactive (Nonreactive); Hepatitis B Surface Antigen Non-Reactive (Nonreactive); Hepatitis C Antibody Non-Reactive (Nonreactive); Rubella IgG Equiv (Nonreactive); Syphilis Antibodies Non-reactive
== END 2021-11-10 23:59 | disposition home or self-care (01) ==
LOC: PAVLAB 09:10
PROVIDERS: Referring Provider Obstetrics & Gynecology; Visit Provider Obstetrics & Gynecology
DX: Z34.81 Encounter for supervision of other normal pregnancy, first trimester (principal); Z31.430 Encounter of female for testing for genetic disease carrier status for procreative management
CPT/HCPCS: 36415; 85025; 86703; 86762; 86780; 86803; 86850; 86900; 86901; 87340

== ENCOUNTER → 2022-03-17 | Outpatient (CLI) | payer MEDICAID, SELFPAY ==
[2022-03-17 11:02] LABS: Absolute Lymphocyte Count 1.75 X10^3/uL (0.83-4.51); Absolute Neutrophil Count 8.6 X10^3/uL (2.0-7.7); Basophil# 0.04 X10^3/uL; Basophil% 0.4 % (0-1); Eosinophil# 0.06 X10^3/uL; Eosinophils% 0.5 % (0-5); Hematocrit 33.3 % (37-47); Lymphocyte # 1.75 X10^3/ul (0.83-4.51); Mean Corpuscular Hgb 27.6 pg (27.0-32.0); Mean Corpuscular Volume 83.5 fL (81-99); Mean Platelet Vol. 9.4 fl (6.2-12.0); Monocyte# 0.43 X10^3/uL; Monocyte% 3.9 % (0-10); NRBC Flagged by Analyzer 0 % (0-5); Neutrophil # 8.57 X10^3/uL (2.7-7.7); Neutrophil % 78.6 % (47-70); Platelet Count 305 K/mm3 (150-450); RBC Distribution Width SD 39.4 fl (35.1-43.9); Red Blood Count 3.99 M/mm3 (4.2-5.4); White Blood Count 10.9 K/mm3 (4.4-11.0)
[2022-03-17 11:33] LABS: Glucose Challenge Gest 1H 50g 142 mg/dL (70-140)
== END | disposition home or self-care (01) ==
LOC: PAVLAB 10:43
PROVIDERS: Obstetrics & Gynecology; Referring Provider Obstetrics & Gynecology; Visit Provider Obstetrics & Gynecology
DX: Z34.82 Encounter for supervision of other normal pregnancy, second trimester (principal); Z13.1 Encounter for screening for diabetes mellitus
CPT/HCPCS: 36415; 82950; 85025

== ENCOUNTER → 2022-03-23 | Outpatient (CLI) | payer MEDICAID, SELFPAY ==
[2022-03-23 07:51] LABS: Glucose GTT-Gestation. Fasting 94 mg/dL (<105)
[2022-03-23 09:06] LABS: Glucose GTT-Gestational 1 Hr 135 mg/dL (<190)
[2022-03-23 10:38] LABS: Glucose GTT-Gestational 2 Hr 113 mg/dL (<165)
[2022-03-23 11:09] LABS: Glucose GTT-Gestational 3 Hr 98 L (<145)
== END | disposition home or self-care (01) ==
PROVIDERS: Referring Provider Obstetrics & Gynecology; Visit Provider Obstetrics & Gynecology
DX: Z13.1 Encounter for screening for diabetes mellitus (principal)
CPT/HCPCS: 36415; 82951; 82952

== ENCOUNTER → 2022-04-13 | Outpatient (CLI) | payer MEDICAID, SELFPAY ==
--- NOTE | 2022-04-13 12:39 | US_ITS ---
STUDY: SECOND AND THIRD TRIMESTER OBSTETRICAL ULTRASOUND - LIMITED REASON FOR EXAM: Female, 26 years old. growth at 32 weeks PRIOR ULTRASOUND: None. TECHNIQUE: Transabdominal TECHNICAL QUALITY: Adequate. FINDINGS: There is a single intrauterine fetus. The fetus is in a cephalic presentation. There is demonstrated cardiac activity with a heart rate of 148 bpm. There is a normal amniotic fluid volume. The largest amniotic fluid pocket measures 4.4 cm. The amniotic fluid index (LUDMILA) is 13.5 cm. The placenta is anterior in location and is not low lying. There are Grade 1 placental changes. The cervix measures cm in length: 6.2. BIOMETRY: BPD: 82 mm: 32 weeks, 6 days HC: 301 mm: 33 weeks, 2 days AC: 276 mm: 31 weeks, 4 days FL: 59 mm: 30 weeks, 4 days CI: 78 FL/AC: 21 FL/BPD: 72 HC/AC: 1.09 age by current US: 32 weeks, 1 days. ELISABETH by current US: 9... Estimated weight: 1804 grams, +/- 271 grams, 25 %. Age by LMP: 32 weeks, 1 days. ELISABETH by LMP: 9..22. US/OB Limited With Biometrics IMPRESSION: There is a single live intrauterine with a heart rate of 148 bpm. age by current US: 32 weeks, 1 days. ELISABETH by current US: ... Estimated weight: 1804 grams, +/- 271 grams, 25 %. Electronically Signed: Rickey Garcia MD at 15:35 EDT ,
== END | disposition home or self-care (01) ==
LOC: OPUS 12:38
PROVIDERS: Visit Provider Nurse Practitioner Women's Health
DX: O98.513 Other viral diseases complicating pregnancy, third trimester (principal); U07.1 COVID-19; Z3A.32 32 weeks gestation of pregnancy
CPT/HCPCS: 76816

== ENCOUNTER → 2022-05-11 | Outpatient (CLI) | payer MEDICAID, SELFPAY ==
--- NOTE | 2022-05-11 12:38 | US_ITS ---
STUDY: SECOND AND THIRD TRIMESTER OBSTETRICAL ULTRASOUND - LIMITED REASON FOR EXAM: Female, 26 years old. growth PRIOR ULTRASOUND: Apr 13 2022 12:48pm. TECHNIQUE: Transabdominal TECHNICAL QUALITY: Adequate. FINDINGS: There is a single intrauterine fetus. The fetus is in a cephalic presentation. There is demonstrated cardiac activity with a heart rate of 143 bpm. There is a normal amniotic fluid volume. The largest amniotic fluid pocket measures 2.7 cm. The amniotic fluid index (LUDMILA) is 8.5 cm. The placenta is anterior in location and is not low lying. There are Grade 1 placental changes. The cervix is obscured by overlying bowel gas and cannot be identified. . BIOMETRY: BPD: 90 mm: 36 weeks, 2 days HC: 330 mm: 37 weeks, 3 days AC: 321 mm: 35 weeks, 6 days FL: 69 mm: 35 weeks, 1 days CI: 78 FL/AC: 21 FL/BPD: 76 HC/AC: 1.03 age by current US: 36 weeks, 6 days. ELISABETH by current US: 9.6.22. Estimated weight: 2814 grams, +/- 422 grams, 46 %. Age by LMP: 36 weeks, 1 days. ELISABETH by LMP: 9.11.22. age by prior US: 36 weeks, 1 days. ELISABETH by prior US: 9.11.22. US/OB Limited With Biometrics IMPRESSION: There is a single live intrauterine with a heart rate of 143 bpm. age by current US: 36 weeks, 6 days. ELISABETH by current US: 9.6.22. Estimated weight: 2814 grams, +/- 422 grams, 46 %. Electronically Signed: Rickey Garcia MD at 15:47 EDT ,
== END | disposition home or self-care (01) ==
PROVIDERS: Visit Provider Nurse Practitioner Women's Health
DX: O98.513 Other viral diseases complicating pregnancy, third trimester (principal); U07.1 COVID-19; Z3A.36 36 weeks gestation of pregnancy
CPT/HCPCS: 76816

== ENCOUNTER → 2022-05-15 | Outpatient (CLI) | payer MEDICAID, SELFPAY | END | disposition home or self-care (01) | LOC: LABSPEC 13:33 | PROVIDERS: Referring Provider Obstetrics & Gynecology; Visit Provider Obstetrics & Gynecology | DX: Z34.90 Encounter for supervision of normal pregnancy, unspecified, unspecified trimester (principal) | CPT/HCPCS: 87081 ==

== ENCOUNTER → 2022-05-18 | Outpatient (CLI) | payer MEDICAID, SELFPAY ==
--- NOTE | 2022-05-18 12:39 | US_ITS ---
STUDY: SECOND AND THIRD TRIMESTER OBSTETRICAL ULTRASOUND - LIMITED REASON FOR EXAM: Female, 26 years old low nl ludmila LMP: 08/31/2021. PRIOR ULTRASOUND: Comparison is made with prior study dated 05/11/2022. TECHNIQUE: Transabdominal TECHNICAL QUALITY: Adequate. FINDINGS: There is a single intrauterine fetus. The fetus is in a cephalic presentation. There is demonstrated cardiac activity with a heart rate of 130 bpm. There is a normal amniotic fluid volume. The largest amniotic fluid pocket measures 5.8 cm. The amniotic fluid index (LUDMILA) is 8.61 cm. The placenta is anterior in location and is not low lying. There are Grade 1 placental changes. BIOMETRY: Age by LMP: 37 weeks, 1 days. ELISABETH by LMP: 06/07/2022. US/OB Limited (No Biometrics) IMPRESSION: Amniotic fluid index is 8.61 cm. Electronically Signed: Silviano Lynn MD at 9:16 EDT ,
== END | disposition home or self-care (01) ==
PROVIDERS: Visit Provider Obstetrics & Gynecology
DX: Z34.93 Encounter for supervision of normal pregnancy, unspecified, third trimester (principal)
CPT/HCPCS: 76815

== ENCOUNTER → 2022-05-26 | Outpatient (CLI) | payer MEDICAID, SELFPAY ==
--- NOTE | 2022-05-26 09:01 | US_ITS ---
STUDY: SECOND AND THIRD TRIMESTER OBSTETRICAL ULTRASOUND - LIMITED REASON FOR EXAM: Female, 26 years old Low nl LUDMILA LMP: 08/31/2021. PRIOR ULTRASOUND: Comparison is made with prior study 05/18/2022. TECHNIQUE: Transabdominal TECHNICAL QUALITY: Adequate. FINDINGS: There is a single intrauterine fetus. The fetus is in a cephalic presentation. There is demonstrated cardiac activity with a heart rate of 143 bpm. There is a normal amniotic fluid volume. The largest amniotic fluid pocket measures 3.2 cm x 2.8 cm. The amniotic fluid index (LUDMILA) is 9.66 cm. The placenta is anterior in location and is not low lying. There are Grade 1 placental changes. The cervix measures 3.9 cm in length. BIOMETRY: Age by LMP: 38 weeks, 2 days. ELISABETH by LMP: 06/07/2022. age by prior US: 39 weeks, 0 days. ELISABETH by prior US: 06/02/2022. US/OB Limited (No Biometrics) IMPRESSION: Normal amniotic fluid index. Electronically Signed: Silviano Lynn MD at 12:25 EDT ,
== END | disposition home or self-care (01) ==
PROVIDERS: Referring Provider Obstetrics & Gynecology; Visit Provider Obstetrics & Gynecology
DX: O41.03X0 Oligohydramnios, third trimester, not applicable or unspecified (principal); Z3A.39 39 weeks gestation of pregnancy
CPT/HCPCS: 76815

== ENCOUNTER 2022-06-03 08:45 | Inpatient (IN) | payer MEDICAID, SELFPAY ==
[2022-06-03] VITALS (83 sets, daily range): BP systolic 80–128; BP diastolic 51–97; PULSE 60–95; RESP 16; TEMP 36.1–37.4; O2SAT 90–100; BMI 36.5
[2022-06-03] MEDS: LACTATED RINGERS 500 ML 999 ML IV ×3 (09:50→16:03)
[2022-06-03 10:14] LABS: Absolute Lymphocyte Count 1.82 X10^3/uL (0.83-4.51); Absolute Neutrophil Count 7.1 X10^3/uL (2.0-7.7); Basophil# 0.03 X10^3/uL; Basophil% 0.3 % (0-1); Eosinophil# 0.03 X10^3/uL; Eosinophils% 0.3 % (0-5); Hematocrit 32.1 % (37-47); Hemoglobin 10.2 g/dL (12.0-15.0); Lymphocyte # 1.82 X10^3/ul (0.83-4.51); Lymphocyte % 19.2 % (19-41); Mean Corp Hgb Conc 31.8 g/dL (32-36); Mean Corpuscular Hgb 24.6 pg (27.0-32.0); Mean Corpuscular Volume 77.3 fL (81-99); Mean Platelet Vol. 11.4 fl (6.2-12.0); Monocyte# 0.44 X10^3/uL; Monocyte% 4.6 % (0-10); NRBC Flagged by Analyzer 0 % (0-5); Neutrophil # 7.13 X10^3/uL (2.7-7.7); Neutrophil % 75.2 % (47-70); Platelet Count 277 K/mm3 (150-450); RBC Distribution Width CV 14.5 % (11.6-14.6); RBC Distribution Width SD 40.2 fl (35.1-43.9); Red Blood Count 4.15 M/mm3 (4.2-5.4); White Blood Count 9.5 K/mm3 (4.4-11.0)
[2022-06-03] MEDS: Lactated Ringers 1,000 ML 200 ML IV ×2 (10:22→13:49)
[2022-06-03] MEDS: fentaNYL-bupivacaine (epidural) 100 ML BAG EPIDURAL ×2 (10:58→15:11)
[2022-06-03] MEDS: Oxytocin 30 units/NS 500 ml 30 UNITS/500 ML IV.SOLN IV (15:26)
[2022-06-03] MEDS: Ondansetron 4 MG/2 ML Vial IV (16:28)
--- NOTE | 2022-06-03 17:08 | HP.PCM.OB_ITS ---
HPI - General General Date of Admission: 06/03/22 HPI Narrative GERARDO VINCENT, is a 27 F who presents to L&D in active labor at 39 weeks and 3 days. She is requesting some time in the labor tub. Maternal Data Information ELISABETH Calculator Estimated Delivery Date Method Current WG Current Estimate 06/07/22 Ultrasound #2 39w 3d Other Estimates 05/17/22 LMP (Certain) 42w 3d [facility] Medical History (Updated 06/03/22 @ 10:11 by Diaz Marroquin) Family history of hearing loss at age younger than 7 years Family history of von Willebrand disease LGSIL (low grade squamous intraepithelial dysplasia) Low-lying placenta in second trimester Home Medications prenat.vits,glen,mtj-ouay-mpyup 1 tab PO DAILY 10/07/21 [History Last Taken 06/02/22 22:00] aspirin 81 mg chewable tablet 81 mg PO DAILY 11/24/21 [History Last Taken 06/02/22 22:00] Allergy/AdvReac Type Severity Reaction Status Date / Time No Known Allergies Allergy Verified 05/29/22 09:58 Family History Mother Breast cancer, Onset Age: 29 Surgical History History of hernia repair Social History adopted: No Smoking Status: Never smoker alcohol intake: never substance use type: does not use caffeine: Yes what type of physical activity do you participate in: walking seatbelt use: always do you feel safe at home: Yes additional social history: single- works at [employer] History 4 Elective abortions Hx Para 3 Spontaneous abortions Hx # Term Pregnancies Ectopic pregnancies Hx # Pregnancies Multiple births # of living children 3 Past Pregnancies Del. Date Name GA/Weeks Outcome Route Bth Weight Infant Gen Labor Lgth Anesthesia Del Locatn Provider FOB 10/29/122012 Christiezakiya 37 live - full term 6lbs 11oz Fema le epidural [facility] Dr. Huerta 06/20/14 2014 Calvin 37 live - full term 6lbs 9oz Male epidural [place] 09/18/19 Micaela 40 live - full term Female epid ural [facility] NIRANJAN Delivery Date: 09/18/19 Last Updated by: Wendy Coates Moderate meconium Visit Details Expected Delivery Route/Plan Labor Preferences- CB/BF classes: no labor support person: Robin labor intervention preferences: [] pain management options preferred: limited intervention but ok with epidural cut cord/dad catch: yes : yes PP control planned: discussed. Considering tubal discussed possible routes of delivery and associated risks: [] special requests: [] Plans Covid status: pos in past Flu vaccine: declined. Tdap vaccine: given Rhogam: NA LARC form signed: yes Problem list reviewed and updated with the most current plan of care details and appropriate orders placed. Relevant counseling for the gestational age provided. Continue routine care and follow up unless otherwise noted in visit notes/problem list details OB Flowsheet Initial Weight: Not Recorded Date -?-?-?-?-?-?-?-?-?-?-?-?- EGA Weight BP Urine Prot -?-?-?-?-?-?-?-?-?-?-?-?- Glucose FHR FuHt Pres Dilation -?-?-?-?-?-?-?-?-?-?-?-?- Effaced St Visit Note 10/15/21 -?-?-?-?-?-?-?-?-?-?-?-?- 6w 3d 200 lb 6 oz 120/84 -?-?-?-?-?-?-?-?-?-?-?-?- -?-?-?-?-?-?-?-?-?-?-?-?- JV- GS measures 6 weeks 4 days, however there is no pole and a structure that looks like a subchorionic hemorrhage forming. 10/22/21 -?-?-?-?-?-?-?-?-?-?-?-?- 7w 3d 199 lb 4 oz 120/82 Nega tive -?-?-?-?-?-?-?-?-?-?-?-?- Negative 155 -?-?-?-?-?-?-?-?-?-?-?-?- JV- no lof, vagi nal bleeding, or cramping. CRL today is 7 weeks 3 days and there is a heart beat today. would like to rpt one more time next week before we extend visits to every month. 10/29/21 -?-?-?-?-?-?-?-?-?-?-?-?- 8w 3d 201 lb 110/70 Negative -?-?-?-?-?-?-?-?-?-?-?-?- Negative 185 -?-?-?-?-?-?-?-?-?-?-?-?- JV- no cramping or bleeding. CRL measuring 8w5d. ok to proceed with normal routine visits. labs and genetic las ordered. 11/24/21 -?-?-?-?-?-?-?-?-?-?-?-?- 12w 1d 196 lb 112/80 Negative -?-?-?-?-?-?-?-?-?-?-?-?- Negative 155 -?-?-?-?-?-?-?-?-?-?-?-?- SM- no vb crampi ng 12/22/21 -?-?-?-?-?-?-?-?-?-?-?-?- 16w 1d 196 lb 2 oz 118/70 Nega tive -?-?-?-?-?-?-?-?-?-?-?-?- Negative 160 -?-?-?-?-?-?-?-?-?-?-?-?- MH-no VB, LOF. M FM US ordered. 01/19/22 -?-?-?-?-?-?-?-?-?-?-?-?- 20w 1d 196 lb 4 oz 108/72 Nega tive -?-?-?-?-?-?-?-?-?-?-?-?- Negative 134 -?-?-?-?-?-?-?-?-?-?-?-?- JV- normal anato my with exception of low lying placenta 17mm from cx. E xplained that will repeat at 28 weeks but because is close to being the 20mm away that the chances of it moving are great and to just avoid sex until next scan. 02/16/22 -?-?-?-?-?-?-?-?-?-?-?-?- 24w 1d 197 lb 124/68 Negative -?-?-?-?-?-?-?-?-?-?-?-?- Negative 150 -?-?-?-?-?-?-?-?-?-?-?-?- SM- no v lof goo d fm no regular ctx 03/16/22 -?-?-?-?-?-?-?-?-?-?-?-?- 28w 1d 196 lb 8 oz 108/64 Nega tive -?-?-?-?-?-?-?-?-?-?-?-?- Negative 147 28 -?-?-?-?-?-?-?-?-?-?-?-?- -No Vb, LOF. G ood FM. MFM US today/low lying placenta resolved per pt. 28 wk labs tomorrow. Larc and tdap done. 04/02/22 -?-?-?-?-?-?-?-?-?-?-?-?- 30w 4d 197 lb 2 oz 106/68 Nega tive -?-?-?-?-?-?-?-?-?-?-?-?- Negative 140 30 -?-?-?-?-?-?-?-?-?-?-?-?- SM- no vb lof go od fm no regular ctx 04/13/22 -?-?-?-?-?-?-?-?-?-?-?-?- 32w 1d 194 lb 108/60 Negative -?-?-?-?-?-?-?-?-?-?-?-?- Negative 143 32 -?-?-?-?-?-?-?-?-?-?-?-?- MH-No VB, LOF. G ood FM. Had growth US earlier today. 04/29/22 -?-?-?-?-?-?-?-?-?-?-?-?- 34w 3d 194 lb 6 oz 109/76 Nega tive -?-?-?-?-?-?-?-?-?-?-?-?- Negative 145 34 -?-?-?-?-?-?-?-?-?-?-?-?- JV- no lof, vagi nal bleeding, or dec fm. plan for rpt growth scan at 36 weeks. last scan 25th% ludmila 13 05/15/22 -?-?-?-?-?-?-?-?-?-?-?-?- 36w 5d 195 lb 110/77 Negative -?-?-?-?-?-?-?-?-?-?-?-?- Negative 145 35 Cephalic 1 -?-?-?-?-?-?-?-?-?-?-?-?- SM- no vb lof go od fm no regular ctx 05/22/22 -?-?-?-?-?-?-?-?-?-?-?-?- 37w 5d 194 lb 2 oz 120/70 -?-?-?-?-?-?-?-?-?-?-?-?- 154 37 1 -?-?-?-?-?-?-?-?-?-?-?-?- 50 -2 JV- no lof , vaginal bleeding, or dec fm. ultrasound showed ludmila 8 (stable) growth normal. 05/29/22 -?-?-?-?-?-?-?-?-?-?-?-?- 38w 5d 194 lb 2 oz 114/78 Nega tive -?-?-?-?-?-?-?-?-?-?-?-?- Negative 137 37 Cephalic 2 .5 -?-?-?-?-?-?-?-?-?-?-?-?- 60 -3 JV-no lof, vaginal bleeding, or dec fm. if still next week will repeat LUDMILA. ROS Constitutional Constitutional: Denies change in weight, fatigue, fever(s), headache(s), poor appetite or weakness Eyes Eyes: Denies blurry vision, change in vision, seeing flashes or spots in vision ENT HEENT: Denies dizziness, headache(s), loss taste/smell or sore throat Cardiovascular Cardiovascular: Denies chest pain, dizziness, dyspnea, irregular heart rhythm, leg edema, palpitations, rapid heart rate or vomiting Respiratory/Chest Respiratory/Chest: Denies chest tightness, cough, dyspnea or breast pain Gastrointestinal Gastrointestinal: Denies abdominal pain, anorexia, constipation, cramping, diarrhea, hemorrhoids, vomiting or weight changes Genitourinary Genitourinary: Denies dysuria, flank pain, genital lesions, genital pain, urinary frequency or urinary urgency Musculoskeletal Musculoskeletal: Denies back pain, difficulty walking, joint pain, limited range of motion, muscle cramps or numbness Integumentary Integumentary: Denies lesions or unusual bruising Neurologic Neurologic: Denies abnormal movements, abnormal speech, dizziness, numbness, seizure-like activity or syncope Psychiatric Psychiatric: Denies anxiety, behavioral changes, change in appetite, change in libido, cognitive impairment, confusion, depression, difficulty concentrating, hallucinations or suicidal thoughts Endocrine Endocrinology: Denies excessive sweating, polydipsia or polyuria Hematologic/Lymphatic Hematologic/Lymphatic: Denies easy bleeding, easy bruising or lymphadenopathy Allergic/Immunologic Allergic/Immunologic: Denies itchy eyes, lip swelling, seasonal rhinorrhea, rhinitis, throat swelling, tongue swelling, eczemia, wheezing or asthma Vital Signs Vital Signs Vital Signs: 06/03/22 05:01 06/03/22 05:01 06/03/22 05:08 Temperature 98.9 F Temperature Source Temporal Pulse Rate Blood Pressure 113/70 BP Systolic 113 BP Diastolic 70 Pulse Ox 06/03/22 05:09 06/03/22 05:09 06/03/22 07:29 Temperature Temperature Source Pulse Rate 94 Blood Pressure 112/73 BP Systolic 112 BP Diastolic 73 Pulse Ox 99 06/03/22 07:30 06/03/22 07:30 06/03/22 07:29 Temperature Temperature Source Temporal Pulse Rate 71 Blood Pressure BP Systolic BP Diastolic Pulse Ox 100 06/03/22 07:29 06/03/22 07:29 06/03/22 10:08 Temperature 97.8 F Temperature Source Pulse Rate Blood Pressure 124/97 H BP Systolic 124 BP Diastolic 97 Pulse Ox 100 06/03/22 10:08 06/03/22 10:45 06/03/22 10:45 Temperature Temperature Source Pulse Rate 70 77 Blood Pressure 128/82 H BP Systolic 128 BP Diastolic 82 Pulse Ox 06/03/22 10:46 06/03/22 10:46 06/03/22 10:50 Temperature Temperature Source Pulse Rate 87 Blood Pressure 120/80 BP Systolic 120 BP Diastolic 80 Pulse Ox 100 06/03/22 10:51 06/03/22 10:51 06/03/22 10:56 Temperature Temperature Source Pulse Rate 70 66 Blood Pressure BP Systolic BP Diastolic Pulse Ox 98 06/03/22 10:56 06/03/22 10:57 06/03/22 10:57 Temperature Temperature Source Pulse Rate 72 Blood Pressure 119/72 BP Systolic 119 BP Diastolic 72 Pulse Ox 99 06/03/22 11:00 06/03/22 11:00 06/03/22 11:01 Temperature Temperature Source Temporal Pulse Rate 89 Blood Pressure 110/75 BP Systolic 110 BP Diastolic 75 Pulse Ox 06/03/22 11:01 06/03/22 11:00 06/03/22 11:06 Temperature 98.8 F Temperature Source Pulse Rate Blood Pressure 114/69 BP Systolic 114 BP Diastolic 69 Pulse Ox 99 06/03/22 11:06 06/03/22 11:06 06/03/22 11:06 Temperature Temperature Source Pulse Rate 69 86 Blood Pressure BP Systolic BP Diastolic Pulse Ox 100 06/03/22 11:11 06/03/22 11:11 06/03/22 11:16 Temperature Temperature Source Pulse Rate 65 67 Blood Pressure BP Systolic BP Diastolic Pulse Ox 100 06/03/22 11:16 06/03/22 11:16 06/03/22 11:16 Temperature Temperature Source Pulse Rate 68 Blood Pressure 84/53 L BP Systolic 84 BP Diastolic 53 Pulse Ox 100 06/03/22 11:17 06/03/22 11:17 06/03/22 11:20 Temperature Temperature Source Pulse Rate 73 Blood Pressure 93/54 L 94/52 L BP Systolic 93 94 BP Diastolic 54 52 Pulse Ox 06/03/22 11:21 06/03/22 11:21 06/03/22 11:26 Temperature Temperature Source Pulse Rate 73 Blood Pressure 103/55 L BP Systolic 103 BP Diastolic 55 Pulse Ox 99 06/03/22 11:26 06/03/22 11:26 06/03/22 11:30 Temperature Temperature Source Pulse Rate 77 Blood Pressure 93/59 L BP Systolic 93 BP Diastolic 59 Pulse Ox 100 06/03/22 11:30 06/03/22 11:31 06/03/22 11:31 Temperature Temperature Source Pulse Rate 82 95 Blood Pressure BP Systolic BP Diastolic Pulse Ox 100 06/03/22 11:36 06/03/22 11:36 06/03/22 11:37 Temperature Temperature Source Pulse Rate 90 Blood Pressure 117/70 BP Systolic 117 BP Diastolic 70 Pulse Ox 100 06/03/22 11:37 06/03/22 11:41 06/03/22 11:41 Temperature Temperature Source Pulse Rate 69 83 Blood Pressure 112/64 BP Systolic 112 BP Diastolic 64 Pulse Ox 06/03/22 11:41 06/03/22 11:45 06/03/22 11:46 Temperature Temperature Source Pulse Rate 67 Blood Pressure 112/68 BP Systolic 112 BP Diastolic 68 Pulse Ox 100 06/03/22 11:46 06/03/22 11:50 06/03/22 11:50 Temperature Temperature Source Pulse Rate 67 Blood Pressure 105/66 BP Systolic 105 BP Diastolic 66 Pulse Ox 100 06/03/22 11:51 06/03/22 11:51 06/03/22 11:56 Temperature Temperature Source Pulse Rate 72 Blood Pressure 110/69 BP Systolic 110 BP Diastolic 69 Pulse Ox 100 06/03/22 11:56 06/03/22 11:56 06/03/22 12:00 Temperature Temperature Source Pulse Rate 73 Blood Pressure 113/67 BP Systolic 113 BP Diastolic 67 Pulse Ox 98 06/03/22 12:01 06/03/22 12:01 06/03/22 11:20 Temperature Temperature Source Temporal Pulse Rate 89 Blood Pressure BP Systolic BP Diastolic Pulse Ox 99 06/03/22 11:20 06/03/22 12:05 06/03/22 12:06 Temperature 97.7 F L Temperature Source Pulse Rate 68 Blood Pressure 109/71 BP Systolic 109 BP Diastolic 71 Pulse Ox 06/03/22 12:06 06/03/22 12:11 06/03/22 12:11 Temperature Temperature Source Pulse Rate 83 Blood Pressure BP Systolic BP Diastolic Pulse Ox 100 100 06/03/22 12:11 06/03/22 12:11 06/03/22 12:16 Temperature Temperature Source Pulse Rate 63 Blood Pressure 118/59 L 116/74 BP Systolic 118 116 BP Diastolic 59 74 Pulse Ox 06/03/22 12:16 06/03/22 12:16 06/03/22 12:21 Temperature Temperature Source Pulse Rate 86 Blood Pressure 114/71 BP Systolic 114 BP Diastolic 71 Pulse Ox 100 06/03/22 12:21 06/03/22 12:21 06/03/22 12:26 Temperature Temperature Source Pulse Rate 65 60 Blood Pressure BP Systolic BP Diastolic Pulse Ox 99 06/03/22 12:26 06/03/22 12:26 06/03/22 12:26 Temperature Temperature Source Pulse Rate 61 Blood Pressure 115/72 BP Systolic 115 BP Diastolic 72 Pulse Ox 99 06/03/22 12:30 06/03/22 12:31 06/03/22 12:31 Temperature Temperature Source Pulse Rate 77 Blood Pressure 112/68 BP Systolic 112 BP Diastolic 68 Pulse Ox 99 06/03/22 12:35 06/03/22 12:36 06/03/22 12:36 Temperature Temperature Source Pulse Rate 71 Blood Pressure 111/66 BP Systolic 111 BP Diastolic 66 Pulse Ox 99 06/03/22 12:40 06/03/22 12:40 06/03/22 12:41 Temperature Temperature Source Pulse Rate 64 67 Blood Pressure 111/66 BP Systolic 111 BP Diastolic 66 Pulse Ox 06/03/22 12:41 06/03/22 12:45 06/03/22 12:45 Temperature Temperature Source Pulse Rate 74 Blood Pressure 99/62 BP Systolic 99 BP Diastolic 62 Pulse Ox 99 06/03/22 12:46 06/03/22 12:46 06/03/22 12:50 Temperature Temperature Source Pulse Rate 83 Blood Pressure 102/59 L BP Systolic 102 BP Diastolic 59 Pulse Ox 98 06/03/22 12:51 06/03/22 12:51 06/03/22 12:55 Temperature Temperature Source Pulse Rate 65 Blood Pressure 102/59 L BP Systolic 102 BP Diastolic 59 Pulse Ox 99 06/03/22 12:56 06/03/22 12:56 06/03/22 13:01 Temperature Temperature Source Pulse Rate 62 75 Blood Pressure BP Systolic BP Diastolic Pulse Ox 98 06/03/22 13:01 06/03/22 13:01 06/03/22 13:01 Temperature 98.4 F Temperature Source Temporal Pulse Rate Blood Pressure BP Systolic BP Diastolic Pulse Ox 99 06/03/22 13:56 06/03/22 13:56 06/03/22 13:56 Temperature 97.0 F L Temperature Source Pulse Rate 86 Blood Pressure 107/63 BP Systolic 107 BP Diastolic 63 Pulse Ox 06/03/22 13:56 06/03/22 13:56 06/03/22 14:52 Temperature Temperature Source Temporal Temporal Pulse Rate Blood Pressure BP Systolic BP Diastolic Pulse Ox 100 06/03/22 14:53 06/03/22 14:53 06/03/22 14:52 Temperature 97.3 F L Temperature Source Pulse Rate 68 Blood Pressure 105/58 L BP Systolic 105 BP Diastolic 58 Pulse Ox 06/03/22 16:02 06/03/22 16:02 06/03/22 16:02 Temperature Temperature Source Pulse Rate 86 Blood Pressure 80/52 L BP Systolic 80 BP Diastolic 52 Pulse Ox 100 06/03/22 16:00 06/03/22 16:02 06/03/22 16:14 Temperature 98.1 F Temperature Source Pulse Rate 70 Blood Pressure 104/58 L BP Systolic 104 BP Diastolic 58 Pulse Ox 06/03/22 16:14 06/03/22 16:57 06/03/22 16:57 Temperature Temperature Source Pulse Rate 92 60 Blood Pressure 111/65 BP Systolic 111 BP Diastolic 65 Pulse Ox 06/03/22 16:57 06/03/22 16:15 06/03/22 16:15 Temperature 97.3 F L Temperature Source Temporal Pulse Rate Blood Pressure BP Systolic BP Diastolic Pulse Ox 100 06/03/22 17:02 06/03/22 17:02 06/03/22 17:07 Temperature Temperature Source Pulse Rate 75 75 Blood Pressure BP Systolic BP Diastolic Pulse Ox 100 06/03/22 17:07 Temperature Temperature Source Pulse Rate Blood Pressure BP Systolic BP Diastolic Pulse Ox 99 Weight Weight: 193 lb 3.2 oz Body Mass Index (BMI) 36.5 Physical Exam Const alert, oriented x3, no apparent distress and healthy appearing General Appearance: cooperative; Negative for anxious HEENT normocephalic Face and Sinus: normal facial exam Eyes EOMs intact bilaterally and no scleral icterus General Eye: normal appearance of both eyes Neck full ROM and supple Lymph Lymphatic: no lymphadenopathy noted Chest Chest: abnormal inspection of the chest Resp normal respiratory effort Effort and Inspection: able to speak in complete sentences Cardio regular rate GI soft to palpation and non-tender Inspection: gravid Palpation: soft; Negative for tender external exam normal Amniotic Fluid: ROM+plus Back/Spine no CVA tenderness Extremity normal to inspection, full ROM and no clubbing, cyanosis or edema General Extremity: Negative for calf tenderness or edema Skin Lesions: no lesions Rashes: no rashes Psych mental status grossly normal Labs Labs Labs: Blood Type O POSITIVE Antibody Screen NEGATIVE Hct 32.1 % (37-47) L Hgb 10.2 g/dL (12.0-15.0) L Obstetrics US Syphilis Total Ab Non-reactive Rubella IgG Antibody Equiv (Nonreactive) Hep Bs Antigen Non-Reactive (Nonreactive) Chlamydia DNA (JENNIFER) Negative (Negative) Neisseria gonorrhoeae DNA (JENNIFER) Negative (Negative) HIV 1&2 Antibody Non-Reactive (Nonreactive) Glucose 1 Hr 50 gm 142 mg/dL (70-140) H Group B Strep DNA Negative (Negative-) Rhogam given: Yes Miscellaneous Test Assessment & Plan (1) Supervision of normal : COMMENT: PRR ELISABETH 05/17/22 boy Calvin Cortes Evelyn. BF Robin (Sarah Davis) (2) Obesity affecting : COMMENT: 1 tm glucola, discussed healthy weight gain, nl 3 HR GTT (3) COVID: COMMENT: Pos 09/27/21 start 81mg asa, growth US at 28 nl and 34 wk (4) : QUALIFIERS: Weeks of gestation: 38 weeks Qualified Code(s): Z3A.38 - 38 weeks gestation of COMMENT: GBS neg. NIPT low risk, carrier neg. 274/274. dec afp. nl anatomy. adequate growth low nl fluid level. Repeat US in 1 week. 05/26 nl LUDMILA (5) Rubella immune status not known: COMMENT: rubella equiv, pt will need mmr pp (6) LGSIL (low grade squamous intraepithelial dysplasia): COMMENT: repeat pap - was bleeding at PPV when iud was placed. PLAN: Plan Patient presents IAL, plan expectant management for , pitocin/AROM PRN if needed. Pain management: plans epidural. GBS negative . Management of any complications: none I have reviewed the PFSH and made any clinically relevant updates.
[2022-06-03] MEDS: Amnioinfusion- 0.9% NS 1,000 ML IV.SOLN. INTRA-UTER (18:31)
[2022-06-03] MEDS: Oxytocin 30 units/NS 500 ml 30 UNITS/500 ML IV.SOLN 334 UNITS IV (18:41)
[2022-06-03] MEDS: Methylergonovine 0.2 MG/ML Ampul IM (18:44)
--- NOTE | 2022-06-03 19:47 | EX.PCM.OBRPT ---
Assessment & Plan (1) Status post vaginal delivery: COMMENT: bb glory teresa 06/03/22- JV (2) Supervision of normal : COMMENT: PRR ELISABETH 05/17/22 Calvin Galicia Evelyn. BF Robin (Sarah Davis) (3) Obesity affecting : COMMENT: 1 tm glucola, discussed healthy weight gain, nl 3 HR GTT (4) COVID: COMMENT: Pos 09/27/21 start 81mg asa, growth US at 28 nl and 34 wk (5) : QUALIFIERS: Weeks of gestation: 38 weeks Qualified Code(s): Z3A.38 - 38 weeks gestation of COMMENT: GBS neg. NIPT low risk, carrier neg. 274/274. dec afp. nl anatomy. adequate growth low nl fluid level. Repeat US in 1 week. 05/26 nl LUDMILA (6) Rubella immune status not known: COMMENT: rubella equiv, pt will need mmr pp (7) LGSIL (low grade squamous intraepithelial dysplasia): COMMENT: repeat pap - was bleeding at PPV when iud was placed. Maternal Data Information ELISABETH Calculator Estimated Delivery Date Method Current WG Current Estimate 06/07/22 Ultrasound #2 39w 3d Other Estimates 05/17/22 LMP (Certain) 42w 3d Final ELISABETH Source: US <20 weeks Vaginal Delivery Operative Information Date of Procedure: 06/03/22 Pre-Operative Diagnosis: 39 weeks 3 days, active labor, Post-Operative Diagnosis: 39 weeks 3 days, active labor, Surgery / Procedure Performed: Spontaneous Vaginal Delivery Type of Anesthesia: Epidural Estimated Blood Loss: 200cc Findings Description of Procedure: Patient began pushing and delivered the head in the KRISS presentation. The head was delivered atraumatically and a loose nuchal cord ?1 was identified and easily reduced over the infant's head. The anterior and posterior shoulders delivered without complication followed by the rest of the and the infant was placed on the maternal abdomen. Delayed cord clamping was employed for approximately 60 seconds. Cord was clamped and cut and gentle traction was applied to the cord and the placenta delivered spontaneously immediately following it was noted to be intact with three-vessel cord. The perineum and vagina were inspected and noted to have no laceration. EBL was 200cc. Patient and infant tolerated delivery well. Presentation: Vertex Amniotic Membrane Rupture Type: Artificial Amniotic Fluid Description: Clear Placental Delivery Description: Spontaneous Placenta Disposition: [facility] Cord Vessel Description: 3 Vessels Cord Entanglement: Around neck x 1, loose Nuchal Cord Compression: Without compression A Gender: Male (1 minute): 8 (5 minute): 9 Delayed Cord Clamping: Yes Post Vaginal Delivery Medications Given After Delivery: IV Pitocin Episiotomy Description: None Laceration: None Complication Complications: None Multi Select Codes Urinary/Genital Urinary/Genital CPT Codes: 55703 Vaginal Delivery+ PP Care([facility])
--- NOTE | 2022-06-03 19:50 | DCINST_ITS ---
Discharge Instructions Diet Discharge Diet: No restrictions Activity Discharge Activity: Return to Normal Activity, May Not Drive (while taking narcotic pain medications.) and May Shower May resume sexual activity in: 4-6 weeks Dressing / Incision Call your doctor if your incision/area has: Continuous Slow Oozing, Sudden Increased Bleeding, Increased Pain/ Swelling, Increased Redness and Foul Smelling Discharge Follow Up Care Please Follow Up With: Pavithra Price, DO When: Call [phone] to make an appointment with your doctor in 6 weeks. If you had elevated blood pressure or 4th degree laceration, you will need to be seen in 2 weeks. Test Results: Test results from this visit will be discussed in further detail at your follow- up appointment, if applicable. Discharge Plan Admission Admit Date/Time: 06/03/22 08:45 Attending Provider: Pavithra Price Primary Care Provider: Sheryl Nicolas Primary Discharge Orders/Prescriptions Prescriptions: No Action prenat.vits,glen,qov-yobs-sheoj Tablet 1 tab PO DAILY aspirin 81 mg tablet,chewable 81 mg PO DAILY Referrals / Follow Up: Care Physician,Sheryl Primary [Primary Care Provider] -
[2022-06-03] MEDS: Acetaminophen 500 MG Tablet 1000 MG PO (20:06)
[2022-06-04] VITALS (8 sets, daily range): BP systolic 96–107; BP diastolic 46–63; PULSE 56–70; RESP 16; TEMP 36.1–36.8; O2SAT 98–99
[2022-06-04] MEDS: Ibuprofen 600 MG Tablet PO (05:11)
[2022-06-04] MEDS: Acetaminophen 500 MG Tablet 1000 MG PO (12:06)
--- NOTE | 2022-06-04 14:28 | NURSING ---
This clinical nursing intern reviewed the documentation completed by Barry Rivers, student nurse.
--- NOTE | 2022-06-04 15:04 | NURSING ---
This chief nursing executive reviewed the documentation completed by Barry Rivers.
--- NOTE | 2022-06-04 15:51 | PCM.PN.OB ---
Subjective Subjective Patient doing well without complaints. Tolerating PO. Ambulating and voiding without difficulty. Feeding well. Denies chest pain, shortness of breath, calf pain/swelling, fevers, chills, lightheadedness. Objective Data Objective Data Vital Signs: Vital Signs Temp Pulse Resp BP Pulse Ox O2 Del Method 98.2 F 56 L 16 107/63 98 Room Air 06/04/22 11:58 06/04/22 11:58 06/04/22 11:58 06/04/22 11:58 06/04/22 11:58 06/04/22 11:58 Oxygen Delivery Method Room Air Weight: 193 lb 3.2 oz Body Mass Index (BMI) 36.5 Intake & Output: Intake and Output for Last 24 Hours 06/02/22 06/03/22 06/04/22 23:59 23:59 23:59 Intake Total 4372.21 / 4372.21 Output Total 1550 / 1550 1000 / 1000 Balance 2822.21 / 2822.21 -1000 / -1000 Lab / Micro Data Result Diagrams: 06/03/22 09:50 Micro: Microbiology 06/03/22 09:55 Nasal Secretion SARS-CoV-2 Antigen (Rapid) - Final ROS Constitutional Constitutional: Denies chills, fatigue, fever(s), poor appetite or weakness Eyes Eyes: Denies blurry vision, change in vision, seeing flashes or spots in vision ENT HEENT: Denies dizziness, headache(s), loss taste/smell or sore throat Cardiovascular Cardiovascular: Denies chest pain, dizziness, dyspnea, irregular heart rhythm, palpitations or rapid heart rate Respiratory/Chest Respiratory/Chest: Denies chest tightness, cough, dyspnea or breast pain Gastrointestinal Gastrointestinal: Denies abdominal pain, constipation or vomiting Genitourinary Genitourinary: Denies dysuria or flank pain Musculoskeletal Musculoskeletal: Denies difficulty walking, joint pain, limited range of motion or numbness Neurologic Neurologic: Denies abnormal movements, abnormal speech, dizziness, numbness, seizure-like activity or syncope Psychiatric Psychiatric: Denies anxiety, behavioral changes, change in appetite, confusion, depression or suicidal thoughts Physical Exam Const alert, oriented x3 and no apparent distress General Appearance: cooperative and comfortable Resp normal respiratory effort Cardio regular rate GI normal to inspection, nondistended, normoactive bowel sounds GI Narrative: uterus is firm below umbilicus Palpation: soft Bimanual Exam - Adnexa, Other: cul-de-sac fullness Back/Spine no CVA tenderness and thoraco-lumbar ROM normal Extremity normal to inspection, no clubbing, cyanosis or edema, no calf tenderness and no pedal edema Psych mental status grossly normal, thought process normal, cooperative, affect normal, speech normal, activity/motor behavior normal, denies homicidal ideation and denies suicidal ideation Assessment & Plan (1) Status post vaginal delivery: COMMENT: alf glory fayego 06/03/22- [facility] PLAN: Plan s/p PPD # 1 1. routine post delivery care 2. breast feeding- support given 3. rh positive 4. rubella immune 5. pt wasnts to go home tonight. appears to be doing well and vitals are stable. will dc after 7 pm tonight.
== END 2022-06-04 19:00 | disposition home or self-care (01) | DRG 560 ==
LOC: WPOUT 08:49 → WP 08:49
PROVIDERS: Admitting Provider Obstetrics & Gynecology; Visit Provider Obstetrics & Gynecology
DX: O69.81X0 Labor and delivery complicated by cord around neck, without compression, not applicable or unspecified (principal); Z37.0 Single live birth; O99.214 Obesity complicating childbirth; Z3A.39 39 weeks gestation of pregnancy; Z86.16 Personal history of COVID-19; Z79.82 Long term (current) use of aspirin
CPT/HCPCS: 59025; 59050; 85025; 86850; 86900; 86901; 87426; 99218; J7030; J7120; G0378; J2405

== ENCOUNTER → 2022-07-22 | Outpatient (CLI) | payer MEDICAID, SELFPAY ==
[2022-08-21 20:03] LABS: HPV Reflexed? NOT INDICATED
== END | disposition home or self-care (01) ==
LOC: LABSPEC 16:25
PROVIDERS: Referring Provider Nurse Practitioner Women's Health; Visit Provider Nurse Practitioner Women's Health
DX: Z12.4 Encounter for screening for malignant neoplasm of cervix (principal)
CPT/HCPCS: 88175; G0145

== ENCOUNTER → 2024-03-02 | Outpatient (CLI) | payer MEDICAID, SELFPAY ==
[2024-03-02 15:21] LABS: hCG Titer Quant., Serum 421 mIU/mL (1-3)
== END | disposition home or self-care (01) ==
LOC: PAVLAB 14:43
PROVIDERS: Referring Provider Obstetrics & Gynecology; Visit Provider Obstetrics & Gynecology
DX: N91.2 Amenorrhea, unspecified (principal)
CPT/HCPCS: 36415; 84702

== ENCOUNTER → 2024-03-04 | Outpatient (CLI) | payer MEDICAID, SELFPAY ==
[2024-03-04 12:14] LABS: hCG Titer Quant., Serum 651 mIU/mL (1-3)
== END | disposition home or self-care (01) ==
LOC: LAB 11:36
PROVIDERS: Referring Provider Obstetrics & Gynecology; Visit Provider Obstetrics & Gynecology
DX: N91.2 Amenorrhea, unspecified (principal)
CPT/HCPCS: 36415; 84702